=== PATIENT | male | born 1985 | race Caucasian/White ===

== ENCOUNTER 2023-03-13 07:46 | Outpatient (CLI) | payer OTHER, SELFPAY ==
[2023-03-13 09:00] LABS: Anion Gap 10 mmol/L (8-16); Blood Urea Nitrogen 18 mg/dL (9-20); Calcium 9.4 mg/dL (8.4-10.2); Carbon Dioxide 25 mmol/L (22-30); Chloride 106 mmol/L (98-107); Cholesterol 223 mg/dL (0-200); Estimated Glomerular Filt Rate > 60; Glucose 120 mg/dL (65-110); HDL Direct 42 mg/dL; Sodium 141 mmol/L (137-145); Triglycerides 378 mg/dL (<150)
[2023-03-13 09:11] LABS: LDL Cholesterol Direct 109 mg/dL
[2023-03-13 09:31] LABS: Prostate Specific Antigen 0.5 ng/mL (< OR = 4.0)
== END 2023-03-13 07:47 | disposition home or self-care (01) ==
PROVIDERS: PCP Family Medicine; Visit Provider Nurse Practitioner Family
DX: Z13.1 Encounter for screening for diabetes mellitus (principal); Z12.5 Encounter for screening for malignant neoplasm of prostate; Z13.220 Encounter for screening for lipoid disorders
CPT/HCPCS: 36415; 80048; 80061; 84153

== ENCOUNTER 2023-04-07 08:03 | Outpatient (CLI) | payer OTHER, SELFPAY ==
[2023-04-27 14:57] VITALS: BMI 38.5
--- NOTE | 2023-04-27 14:57 | WPDHOMESLEEP ---
Sleep Study - Home Unattended Date of Study: 04/07/23 Ordering Provider: Ga Jose MD Interpreting Provider: Clarisa Stephens, DO Home Sleep Study Type: Watch PAT Height: 1.88 m Weight: 136.078 kg Body Mass Index: 38.5 Neck Circumference (inches): 19 Concepcion: 8 Reason for Sleep Study Snoring, daytime hypersomnia Sleep History The patient is a 38-year-old male that had a sleep study ordered by his primary care for evaluation of sleep apnea. The patient rarely awakens from sleep short of breath. He occasionally awakens at night with heartburn, belching or cough. He constantly snores loudly enough that others complain. He rarely has trouble sleeping when he has a cold. He denies waking up gasping for air throughout the night. He rarely has breathing problems at night observed by himself or others. He rarely sweats excessively at night. He rarely has heart palpitations or irregular heartbeats during the night. He occasionally falls asleep during the day but never while driving. He denies sleep paralysis, cataplexy and hypnagogic / hypnopompic hallucinations. He rarely has trouble at school or work due to sleepiness. He denies feeling afraid of going to sleep. He denies having nightmares. He denies remembering his dreams. He denies having thoughts racing through his mind. He rarely feels sad or depressed. He denies having anxiety. He denies having muscular tension. He denies noticing parts of his body jerk. He denies kicking during the night. He denies having crawling and aching feelings in his legs and denies having leg pain during the night. He denies grinding his teeth during sleep and denies awakening with morning jaw pain. He is rarely bothered by pain during the day and never awakened by pain during the night. He occasionally wakes up feeling stiff in the morning. He occasionally wakes up with sore or achy muscles. He rarely wakes up with pain in the neck, spine or other joints. He goes to bed at 11:30 p.m. on weekdays and at midnight on the weekends. He is able to fall asleep relatively quickly. He wakes up once at most throughout the night to urinate and is able to fall asleep relatively quickly. He wakes up at 6:00 a.m. on weekdays and at 10:00 a.m. on the weekends. He typically gets 5-6 hours of sleep per night. He does not stay in bed after waking up in the morning. He currently lives alone. He denies consuming any caffeinated beverages within 2 hours of bedtime. He denies engaging in physical exercise before bedtime. He will watch television before falling asleep. He denies taking naps in the afternoon or the evening. He will consume water additives with caffeine throughout the day. He consumes alcohol socially. He denies tobacco and recreational drug use. [facility] Family History Family History Daughter Depression Father Hypertension Grandparent Heart disease Skin cancer Social History Social History Smoking status: Never smoker Second hand tobacco smoke exposure: No Alcohol intake: current Substance use: never Lack of Transportation: No Lack of Food: Never True Current Housing: I Have Housing Concerned About Future Housing: No Difficulty Paying Gas/Electric Bills: No Difficulty Paying for Meds: No Currently Unemployed: No Education: Trade/Vocational Certificate Difficulty w/ Childcare or Family Care: No Living arrangements: alone Occupation/Education: occupation Gender identity (if verbalized by the patient): Male Spiritual care concerns: Yes Agree to blood products: Yes Medications Home Medications Medication Instructions Recorded Confirmed Type cetirizine 10 mg capsule (Zyrtec) 10 mg PO DAILY PRN 03/04/23 03/04/23 History [id number] 200 mcg-lycop tablet PO 03/04/23 03/04/23 History 175 mcg-lutei 250 mcg-herb 178
== END 2023-04-08 12:55 | disposition home or self-care (01) ==
LOC: ANHCSM 08:05
PROVIDERS: PCP Family Medicine; Visit Provider Family Medicine
DX: G47.33 Obstructive sleep apnea (adult) (pediatric) (principal)
CPT/HCPCS: 95800

== ENCOUNTER 2023-12-24 07:17 | Outpatient (CLI) | payer OTHER, SELFPAY ==
[2023-12-24 07:51] LABS: Alanine Aminotransferase 34 U/L (6-50); Albumin Level 4.2 g/dL (3.5-5.1); Alkaline Phosphatase 53 U/L (38-126); Anion Gap 9 mmol/L (4-12); Aspartate Amino Transferase 29 U/L (17-59); Bilirubin,Total 0.4 mg/dL (0.2-1.3); Blood Urea Nitrogen 17 mg/dL (9-20); Calcium 8.9 mg/dL (8.4-10.2); Carbon Dioxide 27 mmol/L (22-30); Chloride 103 mmol/L (98-107); Estimated Glomerular Filt Rate > 60; Glucose 119 mg/dL (65-110); Potassium 3.9 mmol/L (3.4-5.0); Sodium 139 mmol/L (137-145)
== END 2023-12-24 07:18 | disposition home or self-care (01) ==
LOC: ANHLAB 07:18
PROVIDERS: PCP Family Medicine; Visit Provider Nurse Practitioner Family
DX: E78.00 Pure hypercholesterolemia, unspecified (principal); G47.33 Obstructive sleep apnea (adult) (pediatric); B35.1 Tinea unguium
CPT/HCPCS: 36415; 80053

== ENCOUNTER 2024-05-11 06:50 | Outpatient (CLI) | payer OTHER, SELFPAY ==
[2024-05-11 07:41] LABS: Hematocrit 43.3 % (42.0-52.0); Hemoglobin 13.9 g/dL (14.0-18.0); Mean Corpuscular HGB Conc 32.1 g/dl (32-36); Mean Corpuscular Hemoglobin 27.9 pg (26-34); Mean Corpuscular Volume 86.9 fl (80-100); Mean Platelet Volume 9.8 fl (7.4-10.4); Platelet Count Result 223 k/mm3 (150-375); Red Blood Count 4.98 M/mm3 (4.6-6.20); Red Cell Distribution Width 14.7 % (11.5-14.5); White Blood Count 6.8 K/mm3 (4.5-10.0)
[2024-05-11 08:00] LABS: Alanine Aminotransferase 38 U/L (6-50); Albumin Level 4.3 g/dL (3.5-5.1); Alkaline Phosphatase 62 U/L (38-126); Aspartate Amino Transferase 28 U/L (17-59); Bilirubin,Total 0.6 mg/dL (0.2-1.3); Cholesterol 231 mg/dL (0-200); HDL Direct 51 mg/dL; Triglycerides 201 mg/dL (<150)
[2024-05-11 08:11] LABS: LDL Cholesterol Direct 124 mg/dL
[2024-05-11 09:13] LABS: Vitamin D 25 Hydroxy 21.4 ng/mL
== END 2024-05-11 06:51 | disposition home or self-care (01) ==
LOC: ANHLAB 06:52
PROVIDERS: PCP Family Medicine; Visit Provider Nurse Practitioner Family
DX: B35.1 Tinea unguium (principal); E78.00 Pure hypercholesterolemia, unspecified; Z13.220 Encounter for screening for lipoid disorders; Z12.5 Encounter for screening for malignant neoplasm of prostate; G47.33 Obstructive sleep apnea (adult) (pediatric); Z13.29 Encounter for screening for other suspected endocrine disorder; E55.9 Vitamin D deficiency, unspecified
CPT/HCPCS: 36415; 80061; 80076; 82306; 84443; 85027

== ENCOUNTER 2024-07-25 07:50 | Outpatient (CLI) | payer OTHER, SELFPAY ==
--- OUTSIDE RECORDS SUMMARY | 2024-07-25 07:57 | XMS_ITS | Referral Summary ---
Author Organization [facility] [address] Address [address] [place] [address] Care Team Providers Care Printer Floor Covering Assistant Name Role Phone Rickey Mejia MD Primary Care Provider [phone] Allergies No known active allergies Medications No known medications Active Problems No known active problems Social History Tobacco Use Types Packs/Day Years Used Date Smoking Tobacco: Never Alcohol Use Standard Drinks/Week Comments Yes 0 (1 standard drink = 0.6 oz pur e alcohol) Personal Safety Answer Date Recorded Getting School Help Needed Not on file 07/17 Sex and Gender Information Value Date Recorded Sex Assigned at Not on file Legal Sex Male 12:03 AM NET DEVELOPER CONSULTANT Gender Identity Not on file Sexual Orientation Not on file Last Filed Vital Signs Vital Sign Reading Time Taken Comments Blood Pressure 156/98 05/23/2020 3:13 PM NET DEVELOPER CONSULTANT Pulse 118 05/23/2020 3:13 PM NET DEVELOPER CONSULTANT Temperature - - Respiratory Rate - - Oxygen Saturation - - Inhaled Oxygen Concentration - - Weight 163.3 kg (360 lb) 05/23/2020 3:13 PM NET DEVELOPER CONSULTANT Height 188 cm (6' 2 ) 05/23/2020 3:13 PM NET DEVELOPER CONSULTANT Body Mass Index 46.22 05/23/2020 3:13 PM NET DEVELOPER CONSULTANT Plan of Treatment Not on file Insurance [facility] H[facility]/PPO Address: [facility] [address] [place] [address] Care Teams Printer Floor Covering Assistant Relationship Specialty Start Date End Date Rickey Mejia MD [address] [address] PCP - General Internal Medicine 05/06/20
--- OUTSIDE RECORDS SUMMARY | 2024-07-25 07:57 | XMS_ITS | Clinical Summary ---
Author Organization [facility] [address] Address [address] [place] [address] Care Team Providers Care Blood Bank Laboratory Professional Name Role Phone Rickey Mejai MD Primary Care Provider [phone] Allergies No known active allergies Medications No known medications Active Problems No known active problems Family History Medical History Relation Name Comments Hyperlipidemia Father Hypertension Father Hypertension Mother Relation Name Status Comments Father Mother Social History Tobacco Use Types Packs/Day Years Used Date Smoking Tobacco: Never Alcohol Use Standard Drinks/Week Comments Yes 0 (1 standard drink = 0.6 oz pur e alcohol) Personal Safety Answer Date Recorded Getting School Help Needed Not on file 07/17 Sex and Gender Information Value Date Recorded Sex Assigned at Not on file Legal Sex Male 12: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 AND EVENT ORGANISER Gender Identity Not on file Sexual Orientation Not on file Obstetrics History Last Filed Vital Signs Vital Sign Reading Time Taken Comments Blood Pressure 156/98 05/23/2020 3:13 PM CONFERENCE AND EVENT ORGANISER Pulse 118 05/23/2020 3:13 PM CONFERENCE AND EVENT ORGANISER Temperature - - Respiratory Rate - - Oxygen Saturation - - Inhaled Oxygen Concentration - - Weight 163.3 kg (360 lb) 05/23/2020 3:13 PM CONFERENCE AND EVENT ORGANISER Height 188 cm (6' 2 ) 05/23/2020 3:13 PM CONFERENCE AND EVENT ORGANISER Body Mass Index 46.22 05/23/2020 3:13 PM CONFERENCE AND EVENT ORGANISER Plan of Treatment Not on file Insurance [facility] H[facility] Address: [place] [address] Care Teams Blood Bank Laboratory Professional Relationship Specialty Start Date End Date Rickey Mejia MD [address] [address] PCP - General Internal Medicine 05/06/20
--- OUTSIDE RECORDS SUMMARY | 2024-07-25 07:57 | XMS_ITS | Clinical Summary ---
Author Organization [facility] Address [address] [place] [address] Care Team Providers Care Agriculture Extension Specialist Name Role Phone WallaceMichael DO Primary Care Provider [phone] Allergies No known active allergies Medications No known medications Active Problems Problem Noted Date Diagnosed Date Obesity 12/19/2015 Resolved Problems Problem Noted Date Diagnosed Date Resolved Date Encounter for preventive health examination 10/16/2015 01/12/2020 Social History Tobacco Use Types Packs/Day Years Used Date Smoking Tobacco: Never Smokeless Tobacco: Never Sex and Gender Information Value Date Recorded Sex Assigned at Not on file Legal Sex Male 7:14 PM CDT Gender Identity Not on file Sexual Orientation Not on file Last Filed Vital Signs Vital Sign Reading Time Taken Comments Blood Pressure 136/90 07/19/2018 3:06 PM CDT Pulse 120 07/19/2018 3:06 PM CDT Temperature 36.6 C (97.8 F) 06/07/2018 8:55 AM ASSOCIATE FINANCIAL PLANNER Respiratory Rate 18 07/19/2018 3:06 PM CDT Oxygen Saturation 97% 07/19/2018 3:06 PM CDT Inhaled Oxygen Concentration - - Weight 156.3 kg (344 lb 9.6 oz) 019 3:06 PM CDT Height 188 cm (6' 2 ) 07/19/2018 3:06 PM CDT Body Mass Index 44.24 07/19/2018 3:06 PM CDT Plan of Treatment Health Maintenance Due Date Last Done Comments Hepatitis C 2002 DTaP, Tdap and Td Vaccines ( 1 - Tdap) 2003 Hepatitis B Vaccines (1 of 3 - 19+ 3-dose series) 2003 Annual Physical 07/20/2019 07/19/2018 COVID-19 Vaccine (2023-2 5 season) 2024 Influenza Adult (#1) 2024 HPV Vaccines Aged Out No longer eligi ble based on patient's age to complete this topic Meningococcal B Vaccine Aged Out No l onger eligible based on patient's age to complete this topic Meningococcal Vaccine Aged Out No zoe katie eligible based on patient's age to complete this topic Pneumococcal Vaccine: Pediat rics (0 to 5 Years) and At-Risk Patients (6 to 64 Years) Aged Out No longer eligi ble based on patient's age to complete this topic RSV Immunizations Under 20 Months Aged Out No longer eligible based on patient's age to complete this topic Insurance Care Teams Agriculture Extension Specialist Relationship Specialty Start Date End Date Michael Wallace DO PCP - General FAMILY PRACTICE 06/10/18
[2024-07-25 08:59] LABS: Anion Gap 10 mmol/L (4-12); Blood Urea Nitrogen 20 mg/dL (9-20); Calcium 9.7 mg/dL (8.4-10.2); Carbon Dioxide 27 mmol/L (22-30); Chloride 104 mmol/L (98-107); Estimated Glomerular Filt Rate > 60; Glucose 112 mg/dL (65-110); Potassium 4.5 mmol/L (3.4-5.0); Sodium 141 mmol/L (137-145)
== END 2024-07-25 07:51 | disposition home or self-care (01) ==
LOC: ANHLAB 07:51
PROVIDERS: PCP Family Medicine; Visit Provider Nurse Practitioner Adult Health
DX: M79.89 Other specified soft tissue disorders (principal); I10 Essential (primary) hypertension
CPT/HCPCS: 36415; 80048